=== PATIENT | male | born 1955 | race Caucasian/White ===

== ENCOUNTER 2019-02-01 23:18 | Emergency (ER) | payer MEDICAID ==
[~2019-02-01] VITALS: Ht 170.2 cm; Wt 87.5 kg
[2019-02-01 23:23] VITALS: Ht 170.2 cm; Wt 87.5 kg
[2019-02-02 00:11] LABS: BASOPHIL % 0.4 % (0-2); PLATELET COUNT 222 x10^3mcL (130-400); RED CELL DISTRIBUTION WIDTH 12.5 % (11.5-14.5)
[2019-02-02] MEDS ORDERED: BENAZEPRIL HYDR20 M1 PO (00:19)
[2019-02-02 00:40] LABS: CALCIUM 8.2 mg/dL (8.5-10.1); CARBON DIOXIDE 30.2 mmol/L (21-32); CHLORIDE SERUM 104 mmol/L (98-107); CREATININE SERUM 0.9 mg/dL (0.7-1.3); GFR1 > 60 mL/min; GLUCOSE SERUM 155 mg/dL (74-106); POTASSIUM SERUM 3.4 mmol/L (3.5-5.1); SODIUM SERUM 140 mmol/L (136-145)
[2019-02-02 00:44] LABS: ALBUMIN 3.7 g/dL (3.4-5.0); ALKALINE PHOSPHATASE 77 U/L (46-116); ALT/SGPT 40 U/L (16-63); AST/SGOT 26 U/L (15-37); BILIRUBIN TOTAL 0.4 mg/dL (0.20-1.00); LIPASE 186 IU/L (73-393)
[2019-02-02 02:59] VITALS: BP 127/78
== END 2019-02-02 02:59 | disposition home or self-care (01) ==
LOC: ED 23:18
PROVIDERS: Emergency Medicine
DX: R07.89 Other chest pain (principal); I10 Essential (primary) hypertension
CPT/HCPCS: 36415; Q0092

== ENCOUNTER 2019-11-17 13:32 | Emergency (ER) | payer OTHER ==
[~2019-11-17] VITALS: Ht 170.2 cm; Wt 76.2 kg
[~2019-11-17 13:32] MED LIST: BENAZEPRIL HYDR20 M1 PO
[2019-11-17 14:14] VITALS: Ht 170.2 cm; Wt 76.2 kg
[2019-11-17 17:31] VITALS: BP 138/79
== END 2019-11-17 17:31 | disposition home or self-care (01) ==
LOC: ED 13:32
DX: R07.89 Other chest pain (principal); R10.9 Unspecified abdominal pain; I10 Essential (primary) hypertension; R06.7 Sneezing